=== PATIENT | male | born 1950 | race Caucasian/White ===

== ENCOUNTER → 2020-08-25 | Outpatient (CLI) | payer MEDICARE, OTHER ==
--- NOTE | 2020-08-25 12:55 | RADIOLOGY REPORT (SQ) ---
EXAM DESCRIPTION: HAND RIGHT 3 VIEWS IMAGES COMPLETED DATE/TIME: 08/25/2020 12:47 pm REASON FOR STUDY: PAIN M25.531 PAIN IN RIGHT WRIST COMPARISON: None. EXAM PARAMETERS: NUMBER OF VIEWS: Three views. TECHNIQUE: AP, lateral and oblique radiographic images acquired of the right hand. LIMITATIONS: None. FINDINGS: MINERALIZATION: Normal. BONES: No acute fracture or dislocation. No worrisome bone lesions. No significant osteophytes. JOINTS: No erosions. No aamir-articular osteopenia. No chondrocalcinosis. SOFT TISSUES: No swelling. No calcifications. OTHER: No other significant finding. IMPRESSION: NEGATIVE STUDY OF THE RIGHT HAND. NO EXPLANATION FOR PAIN. TECHNICAL DOCUMENTATION: JOB ID: [id number] 2010 [facility]- All Rights Reserved Reading location - IP/workstation name: [email or web address]
== END ==
LOC: OD 12:29
PROVIDERS: ATTEND Family Medicine
DX: M25.531 Pain in right wrist (principal)